=== PATIENT | male | born 1940 | race Caucasian/White ===

== ENCOUNTER 2022-09-08 11:23 | Day surgery (SDC) | payer MEDICARE ==
[2022-09-03 08:29] LABS: BASOPHILS # (AUTO) 0.1 X10'3 (0-0.2); BASOPHILS % (AUTO) 1.4 % (0-1); EOSINOPHILS # (AUTO) 0.2 X10'3 (0-0.9); EOSINOPHILS % (AUTO) 3.2 % (0-6); HEMATOCRIT 36.4 % (42.0-52.0); HEMOGLOBIN 12.1 g/dl (14.0-17.9); LYMPHOCYTES # (AUTO) 2.3 X10'3 (1.1-4.8); LYMPHOCYTES % (AUTO) 40.6 % (21-51); MEAN CORPUSCULAR HEMOGLOBIN 30.9 PG (27.0-31.0); MEAN CORPUSCULAR HGB CONC 33.2 g/dL (33.0-36.5); MEAN PLATELET VOLUME 7.4 FL (7.4-10.4); MONOCYTES # (AUTO) 0.6 X10'3 (0-0.9); MONOCYTES % (AUTO) 10.3 % (2-12); NEUTROPHILS # (AUTO) 2.5 X10'3 (1.8-7.7); NEUTROPHILS % (AUTO) 44.5 % (42-75); PLATELET COUNT 211 X10'3 (140-440); RED BLOOD COUNT 3.91 X10'6 (4.70-6.10); RED CELL DISTRIBUTION WIDTH 13.9 % (11.5-14.5); WHITE BLOOD COUNT 5.6 X10'3 (4.5-11.0)
[2022-09-03 08:43] LABS: ALBUMIN 3.7 G/DL (3.4-5.0); ANION GAP 2 (8-16); APTT 47 SECONDS (22-32); BLOOD UREA NITROGEN 19 MG/DL (7-18); BUN/CREATININE RATIO 16.2 (5.4-32.0); CALCIUM 8.9 MG/DL (8.5-10.1); CHLORIDE 103 MMOL/L (99-107); CHOL/HDL RATIO 1.7 (0.00-4.99); CHOLESTEROL 114 MG/DL (0-200); CREATININE 1.17 MG/DL (0.60-1.10); GLUCOSE 98 MG/DL (70-104); HDL CHOLESTEROL 67 MG/DL (35-60); LDL CHOLESTEROL 36 MG/DL (50-100); POTASSIUM 4.1 MMOL/L (3.5-5.1); SODIUM 141 MMOL/L (135-145); TOTAL CARBON DIOXIDE 36.2 MMOL/L (24-32); TRIGLYCERIDES 39 MG/DL (20-135); eGFR 60 ML/MIN
[2022-09-08] VITALS (14 sets, daily range): BP systolic 172–245; BP diastolic 76–141
[~2022-09-08] VITALS: Ht 177.8 cm; Wt 93.2 kg
[~2022-09-08 11:23] MED LIST: ATOR40TA PO; AZIT500T9 PO; CETI10TA15 PO; CITA20TA28 PO; DABI150C PO; DONE10TA11 PO; LACT1CAP26 PO; LEVE750T66 PO; LEVO50TA PO
[2022-09-08] MEDS ORDERED: LORazepam 0.5 MG tablet PO PRN (11:45)
[2022-09-08] MEDS ORDERED: normal saline 1,000 ML IV SCH (11:45)
[2022-09-08] MEDS ORDERED: diphenhydrAMINE 25mg capsule PO PRN (11:45)
[2022-09-08] MEDS ORDERED: verapamil 2.5 mg/ml inj IV ONE (13:03)
[2022-09-08] MEDS ORDERED: nitroGLYCERIN-Tridil 50MG/D5W 250 ML IV ONE (13:03)
[2022-09-08] MEDS ORDERED: heparin 1,000unit/ml 10ml vial 10 ML ONE (13:04)
[2022-09-08] MEDS ORDERED: midazolam 1 mg/ML 2ml injection ONE (13:04)
[2022-09-08] MEDS ORDERED: fentaNYL/PF 50MCG/1 ML 2ML syringe ONE (13:04)
[2022-09-08] MEDS ORDERED: iohexol 350MG/ML 100ml bottle IV ONE (13:05)
[2022-09-08] MEDS ORDERED: LIDOcaine 1% (10mg/ml) 2ml vial ONE ×2 (13:05→15:35)
[2022-09-08] MEDS ORDERED: hydrALAZINE 20mg/ml inj. IV ONE ×2 (14:44→17:30)
[2022-09-08 16:37] LABS: ISTAT Hct MIX 35 %PCV (42-52); ISTAT O2 SATURATION MIX VENOUS 49 % (60-80); ISTAT SOURCE VEN
[2022-09-08 16:37] LABS: ISTAT Hct MIX 34 %PCV (42-52); ISTAT O2 SATURATION MIX VENOUS 90 % (60-80); ISTAT SOURCE ART
[2022-09-08] MEDS ORDERED: HYDROcodone/acetaminophen 10/325mg tab PO PRN (16:40)
[2022-09-08] MEDS ORDERED: HYDROcodone/acetaminophen 5mg/325mg tablet PO PRN (16:40)
== END 2022-09-08 18:35 | disposition home or self-care (01) ==
LOC: SSTAY O 11:23
PROVIDERS: ATTEND Student in an Organized Health Care Education/Training Program
DX: I25.10 Atherosclerotic heart disease of native coronary artery without angina pectoris (principal); T82.855A Stenosis of coronary artery stent, initial encounter; I10 Essential (primary) hypertension; E78.5 Hyperlipidemia, unspecified; I35.0 Nonrheumatic aortic (valve) stenosis; Y83.8 Other surgical procedures as the cause of abnormal reaction of the patient, or of later complication, without mention of misadventure at the time of the procedure; Z79.899 Other long term (current) drug therapy; Z98.890 Other specified postprocedural states
CPT/HCPCS: 36415; 80048; 80061; 82803; 85014; 85025; 85610; 85730; 93005; 93451; 99152; A6258; J0360; J1644; J2250; J3010; J3490; J7030; Q9967; 92960; A6402; A6449

== ENCOUNTER 2022-11-05 11:52 | Emergency (ER) | payer MEDICARE ==
[~2022-11-05] VITALS: Ht 177.8 cm; Wt 90.0 kg
[~2022-11-05 11:52] MED LIST changes: -AZIT500T9 PO; -CETI10TA15 PO; -CITA20TA28 PO; -DONE10TA11 PO; -LACT1CAP26 PO
[2022-11-05 13:28] LABS: BASOPHILS # (AUTO) 0.1 X10'3 (0-0.2); EOSINOPHILS # (AUTO) 0.1 X10'3 (0-0.9); EOSINOPHILS % (AUTO) 2.3 % (0-6); HEMATOCRIT 36.8 % (42.0-52.0); HEMOGLOBIN 12.1 g/dl (14.0-17.9); LYMPHOCYTES # (AUTO) 1.8 X10'3 (1.1-4.8); LYMPHOCYTES % (AUTO) 31.9 % (21-51); MEAN CORPUSCULAR HEMOGLOBIN 29.6 PG (27.0-31.0); MEAN CORPUSCULAR HGB CONC 32.8 g/dL (33.0-36.5); MEAN CORPUSCULAR VOLUME 90.2 FL (78-98); MEAN PLATELET VOLUME 7.4 FL (7.4-10.4); MONOCYTES % (AUTO) 18.3 % (2-12); NEUTROPHILS # (AUTO) 2.6 X10'3 (1.8-7.7); NEUTROPHILS % (AUTO) 46.5 % (42-75); PLATELET COUNT 163 X10'3 (140-440); RED BLOOD COUNT 4.07 X10'6 (4.70-6.10); RED CELL DISTRIBUTION WIDTH 13.7 % (11.5-14.5); WHITE BLOOD COUNT 5.5 X10'3 (4.5-11.0)
[2022-11-05 13:53] LABS: ALANINE AMINOTRANSFERASE 14 U/L (12-78); ALBUMIN/GLOBULIN RATIO 0.8 (1.1-1.5); ALKALINE PHOSPHATASE 35 IU/L (46-116); ANION GAP 4 (8-16); ASPARTATE AMINO TRANSFERASE 30 U/L (10-37); BILIRUBIN,TOTAL 0.5 MG/DL (0.1-1.0); BLOOD UREA NITROGEN 20 MG/DL (7-18); BUN/CREATININE RATIO 14.8 (5.4-32.0); CALCIUM 8.6 MG/DL (8.5-10.1); CHLORIDE 101 MMOL/L (99-107); CREATININE 1.35 MG/DL (0.60-1.10); GLUCOSE 103 MG/DL (70-104); POTASSIUM 4.4 MMOL/L (3.5-5.1); SODIUM 138 MMOL/L (135-145); TOTAL CARBON DIOXIDE 32.6 MMOL/L (24-32); TOTAL PROTEIN 6.9 G/DL (6.4-8.2); eGFR 51 ML/MIN
[2022-11-05 14:19] LABS: PLATELET ESTIMATE NORMAL; TOTAL CELLS COUNTED 100
--- NOTE | 2022-11-05 14:44 | NUR ---
Dr. Alvarez updated on pt's positive COVID and hypertension.
[2022-11-05] MEDS ORDERED: LIDOcaine 1% W/epiNEPHrine 1:100,000 20ml vial SQ ONE (15:05)
[2022-11-05] MEDS ORDERED: LIDOCAINE 1%/EPI 1:100,000 inj. 10 ML multi-dose vial SQ ONE (15:10)
[2022-11-05 15:40] VITALS: BP_DIAS 101
--- NOTE | 2022-11-05 15:45 | NUR ---
Updated on phone.
[2022-11-05] MEDS ORDERED: losartan 50mg tablet PO ONE (16:05)
[2022-11-05 16:13] VITALS: BP_SYST 201
--- NOTE | 2022-11-05 16:56 | NUR ---
patient is getting to commode and back unassisted. called to pickup patient. She expressed concern about taking care of patient since she is also sick. Dr. Alvarez updated, social sciences instructor paged for consult.
== END 2022-11-05 17:23 | disposition home or self-care (01) ==
LOC: ER 11:52
DX: S01.511A Laceration without foreign body of lip, initial encounter (principal); U07.1 COVID-19; I11.9 Hypertensive heart disease without heart failure; E78.00 Pure hypercholesterolemia, unspecified; W18.39XA Other fall on same level, initial encounter; Y93.89 Activity, other specified; Y92.89 Other specified places as the place of occurrence of the external cause; Y99.8 Other external cause status
CPT/HCPCS: 36415; 40650; 70450; 72125; 80053; 85007; 85025; 87635; 99284; C9803; A6449

== ENCOUNTER 2022-12-09 10:49 | Outpatient (CLI) | payer MEDICARE ==
[~2022-12-09] VITALS: Ht 172.7 cm; Wt 90.7 kg
[2022-12-09 11:54] LABS: BASOPHILS # (AUTO) 0.1 X10'3 (0-0.2); BASOPHILS % (AUTO) 0.9 % (0-1); EOSINOPHILS # (AUTO) 0.4 X10'3 (0-0.9); EOSINOPHILS % (AUTO) 4.1 % (0-6); HEMOGLOBIN 12.1 g/dl (14.0-17.9); LYMPHOCYTES # (AUTO) 2.8 X10'3 (1.1-4.8); LYMPHOCYTES % (AUTO) 29.7 % (21-51); MEAN CORPUSCULAR HEMOGLOBIN 30.1 PG (27.0-31.0); MEAN CORPUSCULAR HGB CONC 33.6 g/dL (33.0-36.5); MEAN CORPUSCULAR VOLUME 89.6 FL (78-98); MEAN PLATELET VOLUME 7.5 FL (7.4-10.4); MONOCYTES # (AUTO) 0.7 X10'3 (0-0.9); MONOCYTES % (AUTO) 7.2 % (2-12); NEUTROPHILS # (AUTO) 5.4 X10'3 (1.8-7.7); NEUTROPHILS % (AUTO) 58.1 % (42-75); PLATELET COUNT 202 X10'3 (140-440); RED BLOOD COUNT 4.02 X10'6 (4.70-6.10); RED CELL DISTRIBUTION WIDTH 14.4 % (11.5-14.5); WHITE BLOOD COUNT 9.4 X10'3 (4.5-11.0)
[2022-12-09 12:09] LABS: ALANINE AMINOTRANSFERASE 16 U/L (12-78); ALBUMIN 3.5 G/DL (3.4-5.0); ALBUMIN/GLOBULIN RATIO 0.9 (1.1-1.5); ALKALINE PHOSPHATASE 58 IU/L (46-116); ANION GAP 4 (8-16); ASPARTATE AMINO TRANSFERASE 23 U/L (10-37); BILIRUBIN,TOTAL 0.4 MG/DL (0.1-1.0); BLOOD UREA NITROGEN 24 MG/DL (7-18); BUN/CREATININE RATIO 18.9 (5.4-32.0); CALCIUM 8.6 MG/DL (8.5-10.1); CHLORIDE 103 MMOL/L (99-107); CREATININE 1.27 MG/DL (0.60-1.10); GLUCOSE 87 MG/DL (70-104); POTASSIUM 3.8 MMOL/L (3.5-5.1); SODIUM 139 MMOL/L (135-145); TOTAL CARBON DIOXIDE 31.7 MMOL/L (24-32); TOTAL PROTEIN 7.4 G/DL (6.4-8.2); eGFR 54 ML/MIN
[2022-12-09] MEDS ORDERED: IODIXANOL 320 MG/ML INFUS..BTL 100ML IV ONE (12:19)
[2022-12-09 12:23] LABS: APTT 40 SECONDS (22-32)
[2022-12-09 13:10] LABS: ABG BASE EXCESS 3.6 mmol/L (-2.0-2.0); ABG HCO3 29.2 mmol/L (22.0-26.0); ABG OXYGEN SATURATION 91.7 % (94-97); ABG PCO2 (T) 48.6 mmHg (35.0-48.0); ABG PO2 (T) 64.8 mmHg (75.0-100.0); ALLEN'S TEST POSITIVE; FCOHb 0.4 % (0.0-3.9); FMetHb 0.3 % (0.0-1.5); FO2Hb 91.1 % (94-97); TOTAL HEMOGLOBIN 12.2 G/dl (14.0-17.9)
[2022-12-09] MEDS ORDERED: albuterol 2.5 MG/3 ML nebule NEB PRN (13:35)
== END 2022-12-09 23:59 | disposition home or self-care (01) ==
LOC: RAD 10:49
PROVIDERS: ATTEND Internal Medicine Cardiovascular Disease
DX: I51.7 Cardiomegaly (principal); J98.4 Other disorders of lung; I70.0 Atherosclerosis of aorta; I35.0 Nonrheumatic aortic (valve) stenosis; R06.02 Shortness of breath; I65.29 Occlusion and stenosis of unspecified carotid artery; R94.2 Abnormal results of pulmonary function studies; Q25.46 Tortuous aortic arch; I71.43 Infrarenal abdominal aortic aneurysm, without rupture; I25.10 Atherosclerotic heart disease of native coronary artery without angina pectoris; J94.8 Other specified pleural conditions; K44.9 Diaphragmatic hernia without obstruction or gangrene; J98.6 Disorders of diaphragm; J84.10 Pulmonary fibrosis, unspecified; K57.30 Diverticulosis of large intestine without perforation or abscess without bleeding; M47.815 Spondylosis without myelopathy or radiculopathy, thoracolumbar region; K76.0 Fatty (change of) liver, not elsewhere classified; Z90.79 Acquired absence of other genital organ(s)
CPT/HCPCS: 36415; 36600; 71046; 71275; 74174; 80053; 82803; 85018; 85025; 85610; 85730; 94060; 94727; 94729; 94760; J3490; Q9967

== ENCOUNTER 2024-06-26 00:27 | Inpatient (IN) | payer OTHER, MEDICARE ==
[~2024-06-26] VITALS: Ht 175.3 cm; Wt 66.7 kg
[2024-06-26] VITALS (15 sets, daily range): BP systolic 90–137; BP diastolic 53–75; PULSE 69–97; RESP 14–21; TEMP 97.3–98; O2SAT 91–100
[~2024-06-26 00:27] MED LIST changes: +OLME20TA69 PO; +PANT40TA54 PO
[2024-06-26 01:05] LABS: BASOPHILS # (AUTO) 0.1 X10'3 (0-0.2); BASOPHILS % (AUTO) 0.6 % (0-1); EOSINOPHILS # (AUTO) 0.1 X10'3 (0-0.9); EOSINOPHILS % (AUTO) 0.9 % (0-6); HEMATOCRIT 30.9 % (42.0-52.0); LYMPHOCYTES # (AUTO) 1.3 X10'3 (1.1-4.8); LYMPHOCYTES % (AUTO) 12.3 % (21-51); MEAN CORPUSCULAR HGB CONC 32.3 g/dL (33.0-36.5); MEAN CORPUSCULAR VOLUME 77.4 FL (78-98); MEAN PLATELET VOLUME 7.4 FL (7.4-10.4); MONOCYTES # (AUTO) 0.5 X10'3 (0-0.9); MONOCYTES % (AUTO) 4.9 % (2-12); NEUTROPHILS # (AUTO) 8.9 X10'3 (1.8-7.7); NEUTROPHILS % (AUTO) 81.3 % (42-75); PLATELET COUNT 264 X10'3 (140-440); RED CELL DISTRIBUTION WIDTH 18.3 % (11.5-14.5)
[2024-06-26] MEDS: normal saline 1000ml 1,000 ML IV ONE (01:15)
[2024-06-26 01:21] LABS: ALBUMIN 2.9 G/DL (3.4-5.0); ANION GAP 8 (8-16); BLOOD UREA NITROGEN 25 MG/DL (7-18); BUN/CREATININE RATIO 16.7 (10.0-20.0); CALCIUM 8.9 MG/DL (8.5-10.1); CHLORIDE 102 MMOL/L (99-107); GLUCOSE 148 MG/DL (70-104); POTASSIUM 3.7 MMOL/L (3.5-5.1); PRO BRAIN NATRIURETIC PEPTIDE 1143 PG/ML (0-450); SODIUM 137 MMOL/L (135-145); TOTAL CARBON DIOXIDE 27.2 MMOL/L (24-32); eCRCL 35 ML/MIN; eGFR 45 ML/MIN
[2024-06-26 01:42] LABS: ALANINE AMINOTRANSFERASE 11 U/L (12-78); ALBUMIN/GLOBULIN RATIO 0.7 (1.1-1.5); ALKALINE PHOSPHATASE 43 IU/L (46-116); ASPARTATE AMINO TRANSFERASE 22 U/L (10-37); BILIRUBIN,DIRECT 0.2 MG/DL (0-0.3); BILIRUBIN,TOTAL 0.9 MG/DL (0.1-1.0); THYROID STIMULATING HORMONE 0.13 ulU/ml (0.34-4.50); TOTAL PROTEIN 7.3 G/DL (6.4-8.2)
[2024-06-26] MEDS ORDERED: mag hydrox/Alum hydrox/simeth 30ml oral suspension PO PRN (03:05)
[2024-06-26] MEDS ORDERED: morphine 2 MG/ML inj. syringe IV PRN (03:05)
[2024-06-26] MEDS ORDERED: acetaminophen 325mg tablet PO PRN (03:05)
[2024-06-26] MEDS ORDERED: magnesium sulf-water 4G/100mL 100 ML IV PRN (03:05)
[2024-06-26] MEDS ORDERED: potassium Cl 20 mEq SR tablet PO PRN ×2 (03:05)
[2024-06-26] MEDS ORDERED: magnesium sulf-water 2g/50mL 50 ML IV PRN (03:05)
[2024-06-26] MEDS ORDERED: magnesium Cl slow-release 64mg tablet PO PRN (03:05)
[2024-06-26 03:22] LABS: MAGNESIUM 1.6 MG/DL (1.5-2.4)
[2024-06-26] MEDS: normal saline 1000ml 1,000 ML IV SCH (03:45)
[2024-06-26 04:15] LABS: FERRITIN 55 NG/ML (26-388)
[2024-06-26 04:22] LABS: % IRON SATURATION 8 % (11-46); IRON 17 UG/DL (53-167); TOTAL IRON BINDING CAPACITY 214 UG/DL (259-388)
[2024-06-26] MEDS: K and/or MAG REPLACEMENT MC SCH (07:16)
[2024-06-26] MEDS: atorvastatin 20mg tablet PO SCH (07:23)
[2024-06-26] MEDS: heparin, porcine 5000 units/ml vial SQ SCH (07:23)
[2024-06-26] MEDS: pantoprazole 40mg Tablet.DR PO SCH (07:23)
[2024-06-26] MEDS: methylPREDNISolone sod succ 125mg/2ml vial IV ONE (07:23)
[2024-06-26] MEDS: CefTRIAXone/D5W-Rocephin 1gm 50 ML IV SCH (07:23)
[2024-06-26] MEDS ORDERED: LEVETIRACETAM 750 MG PO SCH (08:00)
[2024-06-26 08:17] LABS: FREE T4 (FREE THYROXINE) 1.33 NG/DL (0.73-1.40)
[2024-06-26] MEDS: azithromycin/NS 500mg/250ml 250 ML IV SCH (08:32)
[2024-06-26] MEDS: methylPREDNISolone sod succ/PF 40mg inj. IV SCH (08:32)
[2024-06-26] MEDS: losartan 50mg tablet PO SCH (08:33)
[2024-06-26] MEDS: dabigatran 150mg capsule PO SCH (08:33)
[2024-06-26] MEDS ORDERED: LEVE250T PO (08:34)
[2024-06-26] MEDS: levoTHYROXINE 75mcg tablet PO SCH (08:34)
[2024-06-26] MEDS: levetiracetam 250mg tablet PO ONE (08:45)
[2024-06-26] MEDS: ipratropium/albuterol 3ml nebule NEB SCH (08:52)
[2024-06-26] MEDS: tamsulosin 0.4mg capsule PO STA (13:14)
[2024-06-26] MEDS: levetiracetam 250mg tablet PO SCH (19:58)
[2024-06-26] MEDS ORDERED: tamsulosin 0.4mg capsule PO SCH (20:00)
[2024-06-26] MEDS ORDERED: metoprolol tartrate 1mg/ml inj IV ONE (22:45)
[2024-06-26] MEDS ORDERED: diltiazem-NS 100mg/100ml 100 ML IV SCH (22:50)
[2024-06-27] VITALS (18 sets, daily range): BP systolic 98–151; BP diastolic 52–91; PULSE 55–78; RESP 12–23; TEMP 97–98; O2SAT 94–100
[2024-06-27 05:39] LABS: BASOPHILS % (AUTO) 0.1 % (0-1); EOSINOPHILS % (AUTO) 0 % (0-6); HEMOGLOBIN 8.6 g/dl (14.0-17.9); LYMPHOCYTES # (AUTO) 1.3 X10'3 (1.1-4.8); LYMPHOCYTES % (AUTO) 10.5 % (21-51); MEAN CORPUSCULAR HEMOGLOBIN 24.6 PG (27.0-31.0); MEAN CORPUSCULAR HGB CONC 31.8 g/dL (33.0-36.5); MEAN CORPUSCULAR VOLUME 77.3 FL (78-98); MEAN PLATELET VOLUME 7.7 FL (7.4-10.4); MONOCYTES # (AUTO) 0.4 X10'3 (0-0.9); NEUTROPHILS # (AUTO) 10.4 X10'3 (1.8-7.7); NEUTROPHILS % (AUTO) 86.4 % (42-75); PLATELET COUNT 226 X10'3 (140-440); RED BLOOD COUNT 3.49 X10'6 (4.70-6.10); RED CELL DISTRIBUTION WIDTH 18.1 % (11.5-14.5)
[2024-06-27 05:46] LABS: ALBUMIN 2.4 G/DL (3.4-5.0); ANION GAP 7 (8-16); BLOOD UREA NITROGEN 24 MG/DL (7-18); BUN/CREATININE RATIO 17.5 (10.0-20.0); CALCIUM 8.1 MG/DL (8.5-10.1); CHLORIDE 107 MMOL/L (99-107); CREATININE 1.37 MG/DL (0.60-1.10); GLUCOSE 162 MG/DL (70-104); MAGNESIUM 1.5 MG/DL (1.5-2.4); POTASSIUM 3.4 MMOL/L (3.5-5.1); SODIUM 140 MMOL/L (135-145); eCRCL 38 ML/MIN; eGFR 50 ML/MIN
[2024-06-27 10:32] LABS: BILIRUBIN,URINE NEGATIVE (Neg); CLARITY,URINE CLOUDY (Clear); COLOR,URINE YELLOW (Yellow); GLUCOSE, URINE NEGATIVE (Neg); KETONES,URINE NEGATIVE (Neg); LEUKOCYTE ESTERASE ,URINE NEGATIVE (Neg); NITRITES, URINE NEGATIVE (Neg); OCCULT BLOOD,URINE LARGE (Neg); PH,URINE 5.5 (4.8-8.0); PROTEIN,URINE TRACE mg/dl (Neg); UROBILINOGEN,URINE 0.2 E.U/dL (0.2-1.0)
[2024-06-27 10:40] LABS: UA COLLECTION TYPE FOLEY CATH
[2024-06-27 10:49] LABS: SQUAMOUS EPITHELIAL CELL,UR MANY /LPF (FEW)
[2024-06-27 10:50] LABS: COARSE GRANULAR CAST 0-3 /LPF (NEGATIVE)
[2024-06-27 10:51] LABS: AMORPHOUS URATES 1+; RBC,URINE TNTC /HPF (0-2); URIC ACID CRYSTALS FEW /HPF (NEGATIVE)
[2024-06-27 10:52] LABS: BACTERIA,URINE FEW /HPF (Neg); TRANSITIONAL EPI CELLS,URINE FEW /HPF; WBC,URINE 0-4 /HPF (0-4)
[2024-06-27] MEDS ORDERED: OLANZapine 2.5MG tablet PO PRN (12:35)
[2024-06-27] MEDS: potassium Cl 40MEQ/1/2NS 520ml 520 ML IV PRN (13:22)
[2024-06-27] MEDS ORDERED: iohexol 300mg/ml 100ml inj. ONE (14:05)
[2024-06-27] MEDS: tamsulosin 0.4mg capsule PO SCH (20:00)
[2024-06-28] VITALS (19 sets, daily range): BP systolic 83–142; BP diastolic 49–79; PULSE 54–82; RESP 12–20; TEMP 96.8–98.4; O2SAT 92–99
[2024-06-28] MEDS: ondansetron/PF 4mg/2ml inj IV PRN (01:05)
[2024-06-28] MEDS: LORazepam 2 mg/ml vial IV PRN (01:21)
[2024-06-28 05:49] LABS: ALBUMIN 2.4 G/DL (3.4-5.0); ANION GAP 7 (8-16); BLOOD UREA NITROGEN 20 MG/DL (7-18); BUN/CREATININE RATIO 15.4 (10.0-20.0); CALCIUM 8.1 MG/DL (8.5-10.1); CHLORIDE 109 MMOL/L (99-107); GLUCOSE 98 MG/DL (70-104); MAGNESIUM 1.6 MG/DL (1.5-2.4); POTASSIUM 3.9 MMOL/L (3.5-5.1); SODIUM 141 MMOL/L (135-145); TOTAL CARBON DIOXIDE 24.8 MMOL/L (24-32); eCRCL 40 ML/MIN; eGFR 53 ML/MIN
[2024-06-28 05:52] LABS: BASOPHILS % (AUTO) 0.1 % (0-1); EOSINOPHILS % (AUTO) 0 % (0-6); HEMATOCRIT 26.7 % (42.0-52.0); HEMOGLOBIN 8.4 g/dl (14.0-17.9); LYMPHOCYTES # (AUTO) 1.8 X10'3 (1.1-4.8); LYMPHOCYTES % (AUTO) 13.2 % (21-51); MEAN CORPUSCULAR HGB CONC 31.4 g/dL (33.0-36.5); MEAN CORPUSCULAR VOLUME 79.4 FL (78-98); MEAN PLATELET VOLUME 7.7 FL (7.4-10.4); MONOCYTES # (AUTO) 0.5 X10'3 (0-0.9); MONOCYTES % (AUTO) 3.8 % (2-12); NEUTROPHILS # (AUTO) 11.3 X10'3 (1.8-7.7); NEUTROPHILS % (AUTO) 82.9 % (42-75); PLATELET COUNT 247 X10'3 (140-440); RED BLOOD COUNT 3.36 X10'6 (4.70-6.10); WHITE BLOOD COUNT 13.6 X10'3 (4.5-11.0)
[2024-06-28] MEDS ORDERED: POTASSIUM CHLORIDE 20 MEQ/15 ML oral solution PO PRN ×2 (09:40→09:41)
[2024-06-28] MEDS: ascorbic acid 500mg tablet PO SCH (14:00)
[2024-06-28] MEDS: MULTIVIT-MIN/FERROUS GLUCONATE 9 MG/15 ML LIQUID PO SCH (14:01)
[2024-06-28] MEDS ORDERED: iohexol 300mg/ml 100ml inj. ONE (14:52)
[2024-06-28] MEDS ORDERED: morphine 2 MG/ML inj. syringe IV PRN (16:40)
[2024-06-28] MEDS: lansoprazole 15mg solutab PO SCH (17:09)
[2024-06-28] MEDS: magnesium hydroxide 30ml (MOM) UD suspension PO PRN (18:07)
[2024-06-28] MEDS: heparin, porcine 5000 units/ml vial SQ SCH (20:49)
[2024-06-29] VITALS (22 sets, daily range): BP systolic 69–125; BP diastolic 40–74; PULSE 55–102; RESP 13–18; TEMP 97.7–98.4; O2SAT 91–98
[2024-06-29 06:13] LABS: BASOPHILS % (AUTO) 0.4 % (0-1); EOSINOPHILS # (AUTO) 0.1 X10'3 (0-0.9); EOSINOPHILS % (AUTO) 0.9 % (0-6); HEMATOCRIT 26.5 % (42.0-52.0); HEMOGLOBIN 8.5 g/dl (14.0-17.9); LYMPHOCYTES # (AUTO) 1.7 X10'3 (1.1-4.8); LYMPHOCYTES % (AUTO) 21.9 % (21-51); MEAN CORPUSCULAR HEMOGLOBIN 25.3 PG (27.0-31.0); MEAN CORPUSCULAR HGB CONC 31.9 g/dL (33.0-36.5); MEAN CORPUSCULAR VOLUME 79.2 FL (78-98); MEAN PLATELET VOLUME 7.5 FL (7.4-10.4); MONOCYTES # (AUTO) 0.6 X10'3 (0-0.9); MONOCYTES % (AUTO) 7.3 % (2-12); NEUTROPHILS # (AUTO) 5.2 X10'3 (1.8-7.7); NEUTROPHILS % (AUTO) 69.5 % (42-75); PLATELET COUNT 214 X10'3 (140-440); RED BLOOD COUNT 3.35 X10'6 (4.70-6.10); RED CELL DISTRIBUTION WIDTH 18.8 % (11.5-14.5); WHITE BLOOD COUNT 7.5 X10'3 (4.5-11.0)
[2024-06-29 06:27] LABS: ALBUMIN 2.2 G/DL (3.4-5.0); ANION GAP 1 (8-16); BLOOD UREA NITROGEN 16 MG/DL (7-18); BUN/CREATININE RATIO 16.2 (10.0-20.0); CALCIUM 7.8 MG/DL (8.5-10.1); CHLORIDE 110 MMOL/L (99-107); CREATININE 0.99 MG/DL (0.60-1.10); GLUCOSE 100 MG/DL (70-104); MAGNESIUM 1.6 MG/DL (1.5-2.4); POTASSIUM 3.8 MMOL/L (3.5-5.1); SODIUM 138 MMOL/L (135-145); TOTAL CARBON DIOXIDE 27.1 MMOL/L (24-32); eCRCL 52 ML/MIN; eGFR 72 ML/MIN
[2024-06-29 08:05] LABS: PLATELET ESTIMATE NORMAL
[2024-06-29 08:06] LABS: ANISOCYTOSIS 2+; MICROCYTOSIS 1+
[2024-06-29 08:12] LABS: ELLIPTOCYTES FEW
[2024-06-29 08:14] LABS: ACANTHOCYTES 1+; BURR CELLS FEW
[2024-06-29] MEDS ORDERED: LIDOcaine 2% Viscous 15ml cup ONE (14:21)
[2024-06-29] MEDS ORDERED: MIDAZolam 1 MG/ML 5ML VIAL ONE (14:21)
[2024-06-29] MEDS ORDERED: fentaNYL/PF 50MCG/1 ML 2ML syringe ONE (14:21)
[2024-06-30] VITALS (10 sets, daily range): BP systolic 91–158; BP diastolic 56–96; PULSE 51–108; RESP 14–19; TEMP 97–97.6; O2SAT 92–100
[2024-06-30] MEDS ORDERED: normal saline 1000ml 1,000 ML IV SCH (01:35)
[2024-06-30 06:58] LABS: BASOPHILS % (AUTO) 0.6 % (0-1); EOSINOPHILS # (AUTO) 0.3 X10'3 (0-0.9); EOSINOPHILS % (AUTO) 4.2 % (0-6); HEMATOCRIT 26.8 % (42.0-52.0); HEMOGLOBIN 8.6 g/dl (14.0-17.9); LYMPHOCYTES # (AUTO) 2.1 X10'3 (1.1-4.8); LYMPHOCYTES % (AUTO) 32.8 % (21-51); MEAN CORPUSCULAR HEMOGLOBIN 25.4 PG (27.0-31.0); MEAN CORPUSCULAR HGB CONC 32.2 g/dL (33.0-36.5); MEAN CORPUSCULAR VOLUME 78.8 FL (78-98); MEAN PLATELET VOLUME 7.5 FL (7.4-10.4); MONOCYTES # (AUTO) 0.5 X10'3 (0-0.9); MONOCYTES % (AUTO) 7.8 % (2-12); NEUTROPHILS # (AUTO) 3.6 X10'3 (1.8-7.7); NEUTROPHILS % (AUTO) 54.6 % (42-75); PLATELET COUNT 200 X10'3 (140-440); RED CELL DISTRIBUTION WIDTH 18.8 % (11.5-14.5); WHITE BLOOD COUNT 6.5 X10'3 (4.5-11.0)
[2024-06-30] MEDS ORDERED: heparin, porcine 5000 units/ml vial SQ SCH (07:15)
[2024-06-30 07:16] LABS: ALBUMIN 2.2 G/DL (3.4-5.0); ANION GAP 1 (8-16); BLOOD UREA NITROGEN 13 MG/DL (7-18); BUN/CREATININE RATIO 13.8 (10.0-20.0); CALCIUM 7.6 MG/DL (8.5-10.1); CHLORIDE 107 MMOL/L (99-107); CREATININE 0.94 MG/DL (0.60-1.10); GLUCOSE 101 MG/DL (70-104); MAGNESIUM 1.7 MG/DL (1.5-2.4); POTASSIUM 3.7 MMOL/L (3.5-5.1); SODIUM 138 MMOL/L (135-145); TOTAL CARBON DIOXIDE 30.4 MMOL/L (24-32); eCRCL 55 ML/MIN; eGFR 76 ML/MIN
[2024-06-30 07:45] LABS: ANISOCYTOSIS 2+; MICROCYTOSIS 1+; PLATELET ESTIMATE NORMAL; POIKILOCYTOSIS FEW; SCHISTOCYTES FEW
[2024-06-30] MEDS: heparin, porcine 5000 units/ml vial SQ SCH (08:33)
[2024-06-30] MEDS: losartan 25mg tablet PO SCH (08:34)
[2024-06-30] MEDS: bisacodyl 10mg suppository rectal RC STA (11:46)
[2024-07-01] VITALS (10 sets, daily range): BP systolic 98–101; BP diastolic 50–57; PULSE 67–90; RESP 11–18; TEMP 97.8–98; O2SAT 92–96
[2024-07-01 06:37] LABS: BASOPHILS % (AUTO) 0.2 % (0-1); EOSINOPHILS # (AUTO) 0.2 X10'3 (0-0.9); HEMATOCRIT 30.7 % (42.0-52.0); LYMPHOCYTES # (AUTO) 1.5 X10'3 (1.1-4.8); LYMPHOCYTES % (AUTO) 15.4 % (21-51); MEAN CORPUSCULAR HEMOGLOBIN 25.6 PG (27.0-31.0); MEAN CORPUSCULAR HGB CONC 32.6 g/dL (33.0-36.5); MEAN CORPUSCULAR VOLUME 78.5 FL (78-98); MEAN PLATELET VOLUME 7.6 FL (7.4-10.4); MONOCYTES # (AUTO) 0.6 X10'3 (0-0.9); MONOCYTES % (AUTO) 6.1 % (2-12); NEUTROPHILS # (AUTO) 7.5 X10'3 (1.8-7.7); NEUTROPHILS % (AUTO) 76.3 % (42-75); PLATELET COUNT 198 X10'3 (140-440); RED BLOOD COUNT 3.92 X10'6 (4.70-6.10); RED CELL DISTRIBUTION WIDTH 18.3 % (11.5-14.5); WHITE BLOOD COUNT 9.9 X10'3 (4.5-11.0)
[2024-07-01 06:44] LABS: ALBUMIN 2.5 G/DL (3.4-5.0); ANION GAP 4 (8-16); BLOOD UREA NITROGEN 16 MG/DL (7-18); BUN/CREATININE RATIO 13.8 (10.0-20.0); CALCIUM 8.1 MG/DL (8.5-10.1); CHLORIDE 104 MMOL/L (99-107); CREATININE 1.16 MG/DL (0.60-1.10); GLUCOSE 112 MG/DL (70-104); POTASSIUM 4.2 MMOL/L (3.5-5.1); SODIUM 137 MMOL/L (135-145); TOTAL CARBON DIOXIDE 28.7 MMOL/L (24-32); eCRCL 45 ML/MIN; eGFR 60 ML/MIN
== END 2024-07-01 16:05 | DRG 682 ==
LOC: ER 00:28 → ED HOLD 03:08 → PCU 3S 11:10 → ORTHO 4S 06-28 14:45
PROVIDERS: ADMIT Internal Medicine Critical Care Medicine; ATTEND Internal Medicine
PROC: BW2F1ZZ Computerized Tomography (CT Scan) of Neck using Low Osmolar Contrast (ICD-10-PCS; 2024-06-27)
PROC: BW251ZZ Computerized Tomography (CT Scan) of Chest, Abdomen and Pelvis using Low Osmolar Contrast (ICD-10-PCS; 2024-06-28)
PROC: 0DJ08ZZ Inspection of Upper Intestinal Tract, Via Natural or Artificial Opening Endoscopic (ICD-10-PCS; principal; 2024-06-29)
DX: N17.9 Acute kidney failure, unspecified (principal); J18.9 Pneumonia, unspecified organism; J96.01 Acute respiratory failure with hypoxia; R65.10 Systemic inflammatory response syndrome (SIRS) of non-infectious origin without acute organ dysfunction; E86.0 Dehydration; R62.7 Adult failure to thrive; E78.00 Pure hypercholesterolemia, unspecified; I10 Essential (primary) hypertension; F03.90 Unspecified dementia, unspecified severity, without behavioral disturbance, psychotic disturbance, mood disturbance, and anxiety; I95.1 Orthostatic hypotension; K29.80 Duodenitis without bleeding; I48.91 Unspecified atrial fibrillation; D64.9 Anemia, unspecified; R33.9 Retention of urine, unspecified; N47.1 Phimosis; R56.9 Unspecified convulsions; F32.A Depression, unspecified; Z85.818 Personal history of malignant neoplasm of other sites of lip, oral cavity, and pharynx; Z92.3 Personal history of irradiation; Z79.899 Other long term (current) drug therapy; Z95.0 Presence of cardiac pacemaker; Z68.21 Body mass index [BMI] 21.0-21.9, adult; R13.19 Other dysphagia
CPT/HCPCS: 36415; 43235; 70491; 71045; 71260; 74177; 80048; 80076; 81001; 82728; 82948; 83540; 83550; 83605; 83735; 83880; 84145; 84439; 84443; 84466; 84484; 85008; 85025; 87081; 92508; 92616; 93005; 93306; 94640; 94760; 96360; 97116; 97161; 97530; 99152; 99285; A4314; A4340; A4615; A4620; A5200; A6213; A6250; A6446; A6449; A6590; C1758; G0378; J0456; J0696; J1644; J2060; J2250; J2405; J2919; J3010; J3480; J7030; Q9967